=== PATIENT | male | born 2000 | race Two or more races ===

== ENCOUNTER 2020-01-13 16:41 | Emergency (ER) | payer SELFPAY ==
[~2020-01-13] VITALS: Ht 172.7 cm; Wt 72.2 kg
[2020-01-13 17:20] VITALS: BP 141/66
--- NOTE | 2020-01-13 18:08 | PHYS DOC ---
Past Medical History Past Medical History: Unknown Smoking Status: Current Every Day Smoker Alcohol Use: Heavy General Adult EDM: Chief Complaint: SEXUALLY TRANSMITTED DISEASE HPI: HPI: Patient is a 19 year old male who presents to the emergency department for an STD check. Patient reports that he had unprotected sex 3 days ago with a new partner and was told that his partner may have chlamydia. Patient reports having penile discharge, urinary frequency, urinary urgency, and pain with urination. Patient reports that he wants to be tested and prophylactically treated for STDs today. He is also complaining of bilateral foot itching, burning and yellowing of toenails for the last 2 years. Patient believes that he has a foot fungus and would like to be evaluated for that in the emergency department today. Review of Systems: Review of Systems: Constitutional: Denies fever or chills. [] GI: Denies abdominal pain, nausea, vomiting or diarrhea. [] : See HPI Musculoskeletal: Denies back pain or joint pain. [] Psychiatric: Denies depression or anxiety. [] Heart Score: Risk Factors: Risk Factors: DM, Current or recent (<one month) smoker, HTN, HLP, family history of CAD, obesity. Risk Scores: Score 0 - 3: 2.5% MACE over next 6 weeks - Discharge Home Score 4 - 6: 20.3% MACE over next 6 weeks - Admit for Clinical Observation Score 7 - 10: 72.7% MACE over next 6 weeks - Early Invasive Strategies Current Medications: Current Medications Medications (Trade) Dose Ordered Sig/Yina Start Time Stop Time Status Last Admin Dose Admin Azithromycin (Zithromax) 2,000 mg 1X ONCE 01/13/20 18:00 01/13/20 18:01 UNV Ceftriaxone Sodium (Rocephin Im) 250 mg 1X ONCE 01/13/20 18:00 01/13/20 18:01 UNV Physical Exam: PE: Constitutional: Well developed, well nourished, no acute distress, non-toxic appearance. [] HENT: Normocephalic, atraumatic, bilateral external ears normal, nose normal. [] Eyes: PERRLA, EOMI, conjunctiva normal, no discharge. [] Neck: Normal range of motion, no stridor. [] Cardiovascular:Heart rate regular rhythm Lungs & Thorax: Respirations even and unlabored, no retractions, no respiratory distress Skin: Warm, dry; rash consistent with tinea pedis noted to plantar surface of bilateral feet, no bleeding/no drainage Extremities: No cyanosis, ROM intact, no edema. [] Neurologic: Alert and oriented X 3, no focal deficits noted. [] Psychologic: Affect normal, judgement normal, mood normal. [] Current Patient Data: Vital Signs: Vital Signs Date Time Temp Pulse Resp B/P (MAP) Pulse Ox O2 Delivery O2 Flow Rate FiO2 01/13/20 17:20 97.7 59 20 141/66 (91) 97 Room Air 97.7 EKG: EKG: [] Radiology/Procedures: Radiology/Procedures: [] Course & Med Decision Making: Course & Med Decision Making Pertinent Labs and Imaging studies reviewed. (See chart for details) Patient was treated prophylactically with 250 mg of IM Rocephin, and 1 g of PO Zithromax. Patient was instructed to avoid having intercourse until the results of gonorrhea and chlamydia testing are available, patient was notified that these results would not be available for 48 hours. If one or both of these tests is positive, patient needs to refrain from intercourse for approximately 1 week following the treatment of any current partners. [] Dragon Disclaimer: Dragon Disclaimer: This electronic medical record was generated, in whole or in part, using a voice recognition dictation system. Departure Departure Impression: Primary Impression: Contact with and (suspected) exposure to infections with a predominantly sexual mode of transmission Additional Impression: Tinea pedis of both feet Disposition: 01 HOME, SELF-CARE Condition: STABLE Referrals: NO PCP (PCP) Patient Instructions: Athlete's Foot, [id number], Sexually Transmitted Disease, [id number] Additional Instructions: Follow the athlete's foot instructions that have been provided. I recommend that you go to your local health department for comprehensive sexually transmitted disease testing. You have been treated for a suspected gonorrhea and chlamydia. Avoid having intercourse until the results of gonorrhea and chlamydia testing are available, these results will not be available for 48 hours. If one or both of these tests is positive, you need to refrain from intercourse for approximately 1 week following the treatment of any current partners. Follow-up with your primary care doctor if symptoms persist, return to ER symptoms worsen. Justicifation of Admission Dx: Justifications for Admission: Justification of Admission Dx: No [facility] [employer] Jan 13, 2020 18:08
[2020-01-13 18:11] LABS: BILIRUBIN,URINE SMALL (NEG); CLARITY,URINE TURBID; COLOR,URINE AMBER; NITRITE,URINE NEGATIVE (NEG); PH,URINE 5.5 (<5.0-8.0); PROTEIN,URINE 30 mg/dL (NEG-TRACE)
[2020-01-13 18:21] LABS: BACTERIA,URINE 0 /HPF (0-FEW); RBC,URINE 0 /HPF (0-2); WBC,URINE 0 /HPF (0-4)
[2020-01-13 18:22] LABS: AMORPHOUS SEDIMENT,UR PRESENT /HPF
[2020-01-13] MEDS ORDERED: AZITHROMYCIN 250 MG TABLET. PO ONE (18:30)
[2020-01-13] MEDS ORDERED: cefTRIAXone IM 250 MG VIAL IM ONE (18:30)
== END 2020-01-13 18:48 | disposition home or self-care (01) ==
LOC: ER 16:41
DX: B35.3 Tinea pedis (principal); R35.0 Frequency of micturition; R36.9 Urethral discharge, unspecified; F17.200 Nicotine dependence, unspecified, uncomplicated; F10.10 Alcohol abuse, uncomplicated; Z20.2 Contact with and (suspected) exposure to infections with a predominantly sexual mode of transmission
CPT/HCPCS: 81001; 87491; 87591; 96372; 99283; J0696